=== PATIENT | female | born 1970 | race Caucasian/White ===

== ENCOUNTER 2019-05-22 16:38 | Emergency (ER) | payer BC ==
[~2019-05-22] VITALS: Ht 170.2 cm; Wt 72.6 kg
[2019-05-22 16:49] VITALS: BP_SYST 110
[2019-05-22 19:55] VITALS: BP_SYST 108
== END 2019-05-22 19:55 | disposition home or self-care (01) ==
LOC: SED 16:38
DX: S76.312A Strain of muscle, fascia and tendon of the posterior muscle group at thigh level, left thigh, initial encounter (principal); Z88.1 Allergy status to other antibiotic agents; X58.XXXA Exposure to other specified factors, initial encounter; Y99.0 Civilian activity done for income or pay; Y93.01 Activity, walking, marching and hiking; Y92.89 Other specified places as the place of occurrence of the external cause
CPT/HCPCS: 93971; 99284